=== PATIENT | female | born 1950 | race Caucasian/White ===

== ENCOUNTER → 2017-11-24 15:06 | Outpatient (CLI) | payer BC, SELFPAY ==
--- NOTE | 2017-11-24 15:14 | XR_ITS ---
XR foot LT min 3V HISTORY: ITS.REASON: LEFT FOOT PAIN ORDERING PHYSICIAN: Tawanna Suarez MD PATIENT AGE: 67 years COMPARISON: None FINDINGS: No fracture or dislocation. No lytic or blastic change. There is normal mineralization.. There are hypertrophic changes in the midfoot dorsally at the navicular cuneiform joint. There is a calcaneal spur which measures 7 mm. No other significant anomalies evident. IMPRESSION: Mild degenerative changes of the midfoot, no acute finding
== END ==
PROVIDERS: PCP Family Medicine; Visit Provider Family Medicine
DX: M79.672 Pain in left foot (principal)
CPT/HCPCS: 73630

== ENCOUNTER → 2018-10-14 07:36 | Outpatient (CLI) | payer BC, SELFPAY ==
--- NOTE | 2018-10-14 07:40 | US_ITS ---
US gallbladder Ordering Physician: Tawanna Suarez MD Patient Age: 68 years: Female HISTORY: ITS.REASON: ABD PAIN ongoing abdominal pain TECHNIQUE: COMPARISON :Previous gallbladder quadrant ultrasound January 2013 FINDINGS Pancreas. Unremarkable. Appearance. Liver. No focal lesions. No biliary ductal dilatation. Portal vein normal caliber and normal direction flow. . Common duct normal diameter 2.5 mm at hilum of liver. Gallbladder. Sludge and debris evident but no shadowing or discrete gallstones. Gallbladder wall normal to upper normal thickness. Right kidney 9.1 cm length with cortex well-maintained. No hydronephrosis nor mass. Today's RUQ ultrasound shows no significant change since 2012 IMPRESSION: -- 1. Gallbladder:: sludge noted. No gallstones No wall thickening Otherwise unremarkable RUQ ultrasound
== END ==
PROVIDERS: PCP Family Medicine; Visit Provider Family Medicine
DX: R10.84 Generalized abdominal pain (principal)
CPT/HCPCS: 76705

== ENCOUNTER → 2020-08-02 10:55 | Outpatient (CLI) | payer MEDICARE, SELFPAY ==
[2020-08-03 10:58] LABS: Covid-19 Nasal PCR Sendout P&C NEGATIVE
== END ==
PROVIDERS: PCP Family Medicine; Visit Provider Family Medicine
DX: Z20.822 Contact with and (suspected) exposure to COVID-19 (principal)
CPT/HCPCS: U0004